=== PATIENT | female | born 1985 | race Hispanic/Latino ===

== ENCOUNTER 2017-07-24 14:16 | Emergency (ER) | payer SELFPAY ==
[~2017-07-24] VITALS: Ht 152.4 cm; Wt 142.5 kg
[2017-07-24 14:51] LABS: HEMATOCRIT 36.1 % (36.0-46.0); HEMOGLOBIN 12.1 G/DL (11.9-15.5); MCH 31.4 PG (29.0-34.0); MCHC 33.5 G/DL (30.0-36.0); MCV 93.8 FL (83-99); PLATELET COUNT 298 K/uL (156-360); RBC DIS.WIDTH-CV 12.3 % (11.8-14.6); RBC DIS.WIDTH-SD 42.5 % (39-53); RED BLOOD COUNT 3.85 M/uL (3.80-5.20); WHITE BLOOD COUNT 16.2 K/uL (4.1-10.2)
[2017-07-24 14:57] LABS: ALBUMIN 3.6 g/dL (3.2-4.8)
[2017-07-24 14:58] LABS: CHLORIDE 105 mEq/L (99-109); POTASSIUM 3.9 mEq/L (3.7-5.4); SODIUM 137 mEq/L (136-147)
[2017-07-24 15:00] LABS: GLUCOSE 126 mg/dL (70-99); TOTAL PROTEIN 7.1 g/dL (6.4-8.3)
[2017-07-24 15:02] LABS: TOTAL BILIRUBIN 0.6 mg/dL (0.0-1.0)
[2017-07-24 15:03] LABS: ALKALINE PHOSPHATASE 112 IU/L (3-129)
[2017-07-24 15:04] LABS: CREATININE 0.7 mg/dL (0.6-1.3)
[2017-07-24 15:05] LABS: AST (GOT) 12 IU/L (2-34); UREA NITROGEN (BUN) 9 mg/dL (9-23)
[2017-07-24 15:07] LABS: ALT (GPT) 25 IU/L (3-49)
[2017-07-24 15:08] LABS: GFR ESTIMATE (CALCULATED) > 59 mL/min/
[2017-07-24 15:14] LABS: QUANTITATIVE HCG < 4.0 MIU/ML
[2017-07-24 16:24] LABS: APPEARANCE SL.HAZY ((CLEAR)); BILIRUBIN NEGATIVE; BLOOD NEGATIVE; COLOR YELLOW ((YELLOW)); GLUCOSE (STRIP) NEGATIVE; KETONES NEGATIVE; LEUKOCYTES NEGATIVE; NITRITE NEGATIVE; PROTEIN (STRIP) NEGATIVE; SPECIFIC GRAVITY 1.018 (1.000-1.030); UROBILINOGEN 0.2 MG/DL (0.2-1.0)
[2017-07-24 16:34] LABS: BACTERIA RARE /HPF; EPITHELIAL CELLS 2+ /HPF; HYALINE CASTS 0-5 /LPF; MUCUS TRACE /LPF; RED BLOOD CELLS 0-5 /HPF (0-5); UCUL ADDED? NO; WHITE BLOOD CELLS 0-5 /HPF (0-5)
[2017-07-24] MEDS ORDERED: MOTRIN800 MG PO (17:54)
[2017-07-24] MEDS ORDERED: ZOFRAN ODT4 MG PO (17:54)
[2017-07-24] MEDS ORDERED: BENTYL20 MG PO (17:54)
[2017-07-24 18:16] VITALS: BP 130/78
== END 2017-07-24 18:35 | disposition home or self-care (01) ==
LOC: EME 14:16
DX: R10.84 Generalized abdominal pain (principal); R11.2 Nausea with vomiting, unspecified
CPT/HCPCS: 74018; 80053; 81003; 84702; 85027; 99281; 99284